=== PATIENT | male | born 1945 | race African-American/Black ===

== ENCOUNTER 2018-10-18 14:20 | Inpatient (IN) ==
[2018-10-18 15:27] LABS: Basophils # 0.1 10*3/uL (0.0-0.2); Basophils % 1.2 % (0.0-0.8); Eosinophils # 0.5 10*3/uL (0.0-0.87); Eosinophils % 6.9 % (0.00-10.9); Hematocrit 36.3 VOL% (42.0-52.0); Hemoglobin 10.9 GM/DL (14.0-18.0); Immature Granulocytes % 0.4 %; Immature Granulocytes Absolute 0.03 #; Lymphocytes % 14.8 % (21.2-54.2); Mean Corpuscular Volume 95.3 FL (87-102); Mean Platelet Volume 11.6 FL (9.6-12.0); Monocytes % 7.3 % (1.7-12.7); Neutrophils % 69.4 % (38.7-73.9); Platelet Count 195 T/CUMM (130-400); Red Blood Count 3.81 MC/CUMM (3.8-5.5); Red Cell Distribution Width 13.8 % (9.3-17.3); White Blood Count 6.8 T/CUMM (4-12)
[2018-10-18 15:42] LABS: Calcium 8.9 MG/DL (8.5-10.1); Osmolality,Calculated 307.5 MOS/KG (273-304)
[2018-10-18] MEDS ORDERED: ACETAMINOPHEN 325 MG TABLET PO PRN (18:46)
[2018-10-18] MEDS ORDERED: MORPHINE 4 MG/1 ML VIAL IV PRN (18:46)
[2018-10-18] MEDS ORDERED: ONDANSETRON 4 MG/2 ML VIAL IV PRN (18:46)
[2018-10-19] MEDS: DOCUSATE SODIUM 100 MG CAPSULE PO SCH ×3 (01:06→21:11)
[2018-10-19] MEDS: HEPARIN 5,000 UNIT/1 ML VIAL SUBCUT SCH ×4 (01:06→21:11)
[2018-10-19] MEDS: hydrALAZINE 10 MG TABLET PO SCH ×2 (01:06→09:14)
[2018-10-19 03:39] LABS: Apearance,Urine CLEAR (Clear); Bilirubin,Urine Negative (Negative); Blood, Urine Negative (Negative); Glucose,Urine (UA) Negative (Negative); Hyaline Casts,Urine 5 /LPF (0-3); Ketones,Urine Negative (Negative); Mucus,Urine Occasional /LPF (Occasional); Nitrite,Urine Negative (Negative); Protein,Urine 30 MG/DL; RBC,Urine 1 /HPF (0-4); Urine Color Straw (Yellow); Urine Urobilinogen < 2.0 EU/DL (0.2-1.0); WBC,Urine 2 /HPF (0-6)
[2018-10-19 04:55] LABS: Basophils # 0.1 10*3/uL (0.0-0.2); Eosinophils # 0.3 10*3/uL (0.0-0.87); Eosinophils % 5.6 % (0.00-10.9); Hematocrit 29.7 VOL% (42.0-52.0); Hemoglobin 9.4 GM/DL (14.0-18.0); Immature Granulocytes % 0.3 %; Immature Granulocytes Absolute 0.02 #; Lymphocytes # 1.2 10*3/uL (1.4-4.0); Mean Corpuscular HGB Conc 31.6 GM/DL (32-36); Mean Corpuscular Volume 92.2 FL (87-102); Mean Platelet Volume 11.5 FL (9.6-12.0); Monocytes % 10.5 % (1.7-12.7); Neutrophils % 62.6 % (38.7-73.9); Platelet Count 184 T/CUMM (130-400); Red Blood Count 3.22 MC/CUMM (3.8-5.5); Red Cell Distribution Width 13.7 % (9.3-17.3); White Blood Count 6.1 T/CUMM (4-12)
[2018-10-19 05:56] LABS: Albumin 3.8 G/DL (3.4-5.0); Calcium 8.8 MG/DL (8.5-10.1); Osmolality,Calculated 304.7 MOS/KG (273-304); Risk Ratio 1.28; Total Protein 7.5 G/DL (6.4-8.3); VLDL CHOLESTEROL 6.8 MG/DL
[2018-10-19 07:27] LABS: Barbiturates Screen,Urine Negative (Negative); Benzodiazepines Screen,Urine Negative (Negative); Cannabinoid Screen,Urine Negative (Negative); Opiate Screen,Urine Negative (Negative); Phencyclidine Screen,Urine Negative (Negative)
[2018-10-19] MEDS ORDERED: METOPROLOL SUCCINATE XL 50 MG TABLET PO SCH (09:00)
[2018-10-19] MEDS: PANTOPRAZOLE 40 MG TABLET PO SCH (09:14)
[2018-10-19] MEDS: FUROSEMIDE 40 MG TABLET PO SCH ×2 (09:14→14:23)
[2018-10-19] MEDS: AMIODARONE 200 MG TABLET PO SCH (09:17)
[2018-10-19] MEDS: ATORVASTATIN 80 MG TABLET PO SCH (09:17)
[2018-10-19] MEDS: amLODIPine 2.5 MG TABLET PO SCH (09:17)
[2018-10-19] MEDS: LEVOTHYROXINE 100 MCG VIAL IV SCH (14:25)
[2018-10-19] MEDS ORDERED: EPOETIN ALFA 10,000 UNIT/1 ML VIAL SUBCUT ONE (14:30)
[2018-10-20 03:34] LABS: Basophils # 0.1 10*3/uL (0.0-0.2); Basophils % 0.8 % (0.0-0.8); Eosinophils # 0.4 10*3/uL (0.0-0.87); Eosinophils % 5.9 % (0.00-10.9); Hemoglobin 9.7 GM/DL (14.0-18.0); Immature Granulocytes % 0.3 %; Immature Granulocytes Absolute 0.02 #; Lymphocytes % 16.7 % (21.2-54.2); Mean Corpuscular HGB Conc 31.3 GM/DL (32-36); Mean Corpuscular Volume 93.7 FL (87-102); Monocytes % 10.5 % (1.7-12.7); Neutrophils % 65.8 % (38.7-73.9); Platelet Count 197 T/CUMM (130-400); Red Blood Count 3.31 MC/CUMM (3.8-5.5); Red Cell Distribution Width 13.7 % (9.3-17.3); White Blood Count 6.1 T/CUMM (4-12)
[2018-10-20 04:05] LABS: Albumin 3.7 G/DL (3.4-5.0); Bilirubin,Total 0.4 MG/DL (0.2-1.0); Calcium 8.7 MG/DL (8.5-10.1); Total Protein 7.5 G/DL (6.4-8.3)
[2018-10-20] MEDS: HEPARIN 5,000 UNIT/1 ML VIAL SUBCUT SCH ×3 (06:40→21:27)
[2018-10-20] MEDS: LEVOTHYROXINE 100 MCG VIAL IV SCH (07:13)
[2018-10-20] MEDS: amLODIPine 2.5 MG TABLET PO SCH (08:29)
[2018-10-20] MEDS: FUROSEMIDE 40 MG TABLET PO SCH ×2 (08:29→15:51)
[2018-10-20] MEDS: ATORVASTATIN 80 MG TABLET PO SCH (08:29)
[2018-10-20] MEDS: METOPROLOL TARTRATE 25 MG TABLET PO SCH ×2 (08:29→21:28)
[2018-10-20] MEDS: DOCUSATE SODIUM 100 MG CAPSULE PO SCH ×2 (08:30→21:27)
[2018-10-20] MEDS: AMIODARONE 200 MG TABLET PO SCH (08:30)
[2018-10-20] MEDS: PANTOPRAZOLE 40 MG TABLET PO SCH (08:30)
[2018-10-21 05:42] LABS: Basophils # 0.1 10*3/uL (0.0-0.2); Basophils % 0.7 % (0.0-0.8); Eosinophils # 0.4 10*3/uL (0.0-0.87); Eosinophils % 5.9 % (0.00-10.9); Hematocrit 31.1 VOL% (42.0-52.0); Hemoglobin 9.9 GM/DL (14.0-18.0); Immature Granulocytes % 0.6 %; Immature Granulocytes Absolute 0.04 #; Lymphocytes # 1.1 10*3/uL (1.4-4.0); Lymphocytes % 16.6 % (21.2-54.2); Mean Corpuscular HGB Conc 31.8 GM/DL (32-36); Mean Corpuscular Volume 92.3 FL (87-102); Mean Platelet Volume 11.4 FL (9.6-12.0); Monocytes % 13.2 % (1.7-12.7); Platelet Count 211 T/CUMM (130-400); Red Blood Count 3.37 MC/CUMM (3.8-5.5); Red Cell Distribution Width 13.9 % (9.3-17.3); White Blood Count 6.8 T/CUMM (4-12)
[2018-10-21] MEDS: HEPARIN 5,000 UNIT/1 ML VIAL SUBCUT SCH (06:52)
[2018-10-21] MEDS: LEVOTHYROXINE 100 MCG VIAL IV SCH (06:53)
[2018-10-21 07:34] LABS: Alanine Aminotransferase 28 U/L (16-61); Albumin 3.9 G/DL (3.4-5.0); Alkaline Phosphatase 57 U/L (45-117); Aspartate Amino Transferase 15 U/L (0-37); Bilirubin,Total < 0.39 MG/DL (0.2-1.0); Blood Urea Nitrogen 103 MG/DL (7-18); Calcium 9.1 MG/DL (8.5-10.1); Glucose 93 MG/DL (74-106); Total Protein 7.8 G/DL (6.4-8.3)
[2018-10-21] MEDS: FUROSEMIDE 40 MG TABLET PO SCH (09:48)
[2018-10-21] MEDS: ATORVASTATIN 80 MG TABLET PO SCH (09:49)
[2018-10-21] MEDS: PANTOPRAZOLE 40 MG TABLET PO SCH (09:49)
[2018-10-21] MEDS: METOPROLOL TARTRATE 25 MG TABLET PO SCH (09:49)
[2018-10-21] MEDS: DOCUSATE SODIUM 100 MG CAPSULE PO SCH (09:49)
[2018-10-21] MEDS: amLODIPine 2.5 MG TABLET PO SCH (09:49)
[2018-10-21] MEDS: AMIODARONE 200 MG TABLET PO SCH (09:49)
[2018-10-21 11:23] VITALS: BP 95/64
== END 2018-10-21 13:57 | disposition home or self-care (01) | DRG 312 ==
LOC: N.ED 14:20 → SUATTDRO 18:46 → N.TELEN 18:46 → N.ED 19:33
PROVIDERS: ADMIT Phlebology; ATTEND Internal Medicine